=== PATIENT | female | born 1935 | race Caucasian/White ===

== ENCOUNTER 2016-12-28 14:34 | Emergency (ER) | payer OTHER ==
[2016-12-28 14:42] VITALS: BP 144/75; BMI 25.7
--- NOTE | 2016-12-28 15:10 | ED.ABDFE ---
HPI - Time seen Time seen: 15:05 - PCP Primary Care Physician: FREDDY - Complaint Chief Complaint:: PT. C/O ABDOMINAL PAIN. DAUGHTER STATES PT. HAS BEEN CONSTIPATED FOR 10 DAYS WITH A VERY SMALL, HARD BOWEL MOVEMENT ON MONDAY. PT. HAS CHANGED HER DIET AT HOME WELL TAKEN MAGNESIUM CITRATE, MIRALAX, & A SUPPOSITORY WITH NO RESULTS. - Source History Provided: Patient, Family Member - Mode of arrival Mode of Arrival: Ambulatory - Timing Onset of Chief Complaint: 12/18/16 PMH - PMH Past Medical History: No Past Surgical History: Yes Surgical History: Cholecystectomy - Family History History of Family Medical Conditions: No - Social History Does patient currently use any type of tobacco product: No Have you used tobacco products in the last 12 months: No Type of Tobacco Use: None Does any household member use tobacco: No Alcohol Use: None Do you use any recreational Drugs:: No Lives With: Alone Lives Where: Home - infectious screening In the last 2 months have you had wt loss of >10#?: NO Have you had fever, night sweats or hemotysis?: No Have you traveled outside the country in the last 6 months?: No Isolation: Standard ROS - Review of Systems Constitutional: No Symptoms Reported Eyes: No Symptoms Reported ENTM: No Symptoms Reported Respiratoy: No Symptoms Reported Cardiovascular: No Symptoms Reported Gastrointestinal/Abdominal: See HPI, Constipation Genitourinary: No Symptoms Reported Neurological: No Symptoms Reported Musculoskeletal: No Symptoms Reported Integumentary: No Symptoms Reported Hematologic/Lymphatic: No Symptoms Reported Endocrine: No Symptoms Reported Psychiatric: No Symptoms Reported All Other Systems: Reviewed and Negative PE - Vital Signs Vitals: Temperature 97.9 F Pulse Rate 76 Respiratory Rate 16 Blood Pressure 144/75 O2 Sat by Pulse Oximetry 96 - General Limitations: No Limitations General Appearance: Alert, In No Apparent Distress - Head Head Exam: Normal Inspection, Atraumatic - Eyes Eye exam: Normal Appearance, PERRL, EOMI - ENT ENT Exam: Normal Exam - Neck Neck Exam: Normal Inspection, Full ROM - Chest Chest Inspection: Normal Inspection - Respiratory Respiratory Exam: Normal Lung Sounds Bilat Respiratory Exam: Bilateral Clear to Auscultation - Cardiovascular Cardiovascular Exam: Regular Rate, Normal Rhythm - Abdominal Exam Abdominal Exam: Normal Inspection Abdominal Tenderness: negative: RUQ, RLQ, LUQ, LLQ, Epigastrium, Suprapubic, Diffuse, Mild, Moderate, Severe, Other - Rectal Rectal Exam: Deferred - Back Back Exam: Normal Inspection - Extremeties Extremities Exam: Normal Inspection, Full ROM - External Exam: Female: Deferred : Speculum Exam (Female): Deferred : Bimanual Exam (female): Deferred - Neurologic Neurological Exam: Alert, Oriented X3, CN II-XII Intact - Psychiatric Psychiatric Exam: Normal Affect ROR - XRAY XRAY Interpreted by: Radiologist (There is contrast material and stool present throughout the colon. No bowel obstruction is seen. There is no opaque stone although 1 could be obscured by the contrast material. There are surgical clips from cholecystectomy. Lung bases are clear. There is demineralization of the osseous structures. Multiple biconcave compression fractures are present involving the lower thoracic and upper lumbar regions. An acute osseous abnormality is not identified. Impression:No bowel obstruction seen. Contrast material and stool present throughout the colon) - Diagnosis Discharge Problem: Constipation Qualifiers: Constipation type: slow transit constipation Qualified Code(s): K59.01 - Slow transit constipation - Discharge Plan Condition: Stable - Follow ups/Referrals Follow ups/Referrals: AKIL HAYES [Primary Care Provider] - 3 days - Instructions
--- NOTE | 2016-12-28 16:13 | RAD ---
HISTORY: Constipation for 10 days. Study: KUB Comparison: No priors Findings: There is contrast material and stool present throughout the colon. No bowel obstruction is seen. The re is no opaque stone although 1 could be obscured by the contrast material. There are surgical clip s from cholecystectomy. Lung bases are clear. There is demineralization of the osseous structures. M ultiple biconcave compression fractures are present involving the lower thoracic and upper lumbar re gions. An acute osseous abnormality is not identified. IMPRESSION: No bowel obstruction seen. Contrast material and stool present throughout the colon. Reported By:
== END 2016-12-28 16:41 | disposition home or self-care (01) ==
LOC: ER 14:51
DX: K59.01 Slow transit constipation (principal)
CPT/HCPCS: 74000; 99282

== ENCOUNTER 2017-04-04 20:35 | Emergency (ER) | payer OTHER ==
[2017-04-04 20:45] VITALS: BP 117/73; BMI 23.0
--- NOTE | 2017-04-04 21:19 | DR.GENAD ---
HPI - PCP Primary Care Physician: nfd - Complaint/Symptoms Chief Complaint Doctors Comments: abdominal pain and vomiting since surgery 4 months ago. Also diarrhea today. Had endoscopy 2 weeks which was normal. Chief Complaint:: stomach pain - Nurses notes reviewed Nurses Notes Review: Yes - Source History Provided: Patient - Mode of Arrival Mode of Arrival: Ambulatory - Timing Onset of Chief Complaint: 04/03/17 Came on: Gradually - Duration Duration: Intermittent How lon Duration: Days - Location Location: stomach - Severity Severity: Mild - Associated Signs and Symptoms Associated Signs and Symptoms: diarrhea - Other History Other History: spinal fusion 4 months ago PMH - PMH Past Medical History: Yes Past Medical History Comment: osteoporosis Past Surgical History: Yes Surgical History: Cholecystectomy, Ortho Surgery Past Surgical History Comment: spinal surgery - Family History History of Family Medical Conditions: No - Social History Does patient currently use any type of tobacco product: No Have you used tobacco products in the last 12 months: No Type of Tobacco Use: None Does any household member use tobacco: No Alcohol Use: None Do you use any recreational Drugs:: No Lives With: Alone Lives Where: Home - infectious screening In the last 2 months have you had wt loss of >10#?: NO Have you had fever, night sweats or hemotysis?: No Have you traveled outside the country in the last 6 months?: No Isolation: Standard ROS - Review of Systems Constitutional: No Symptoms Reported Eyes: No Symptoms Reported ENTM: No Symptoms Reported Respiratoy: No Symptoms Reported Cardiovascular: No Symptoms Reported Gastrointestinal/Abdominal: Abdominal Pain, Diarrhea, Nausea, Vomiting Genitourinary: No Symptoms Reported Neurological: No Symptoms Reported Musculoskeletal: No Symptoms Reported Integumentary: No Symptoms Reported Hematologic/Lymphatic: No Symptoms Reported Endocrine: No Symptoms Reported Psychiatric: No Symptoms Reported PE - Vital Signs Vitals: Temperature 98.1 F Pulse Rate 77 Respiratory Rate 16 Blood Pressure 117/73 O2 Sat by Pulse Oximetry 97 - General Limitations: No Limitations General Appearance: Alert, In No Apparent Distress - Head Head Exam: Normal Inspection - Eyes Eye exam: Normal Appearance, EOMI. negative: Scleral Icterus, Conjunctival Injection - ENT ENT Exam: Normal Exam - Neck Neck Exam: Normal Inspection, Full ROM, Trachea Midline - Chest Chest Inspection: Normal Inspection - Respiratory Respiratory Exam: Normal Lung Sounds Bilat. negative: Accessory Muscle Use, Respiratory Distress Respiratory Exam: Bilateral Clear to Auscultation - Cardiovascular Cardiovascular Exam: Regular Rate - Abdominal Exam Abdominal Exam: Normal Inspection, Normal Bowel Sounds, Soft. negative: Distention, Tenderness, Guarding Abdominal Tenderness: Epigastrium - Extremities Extremities Exam: Normal Inspection, Full ROM, Tenderness - Back Back Exam: Normal Inspection - Neurologic Neurological Exam: Alert, Oriented X3, CN II-XII Intact - Psychiatric Psychiatric Exam: Depressed - Skin Skin Exam: Intact, Normal Color ROR - Labs Reviewed Result Diagrams: 04/04/17 21:38 04/04/17 21:38 Laboratory: WBC 10.2 X10^3/uL (3.6-10.0) H 04/04/17 21:38 RBC 4.54 X10^6/uL (3.5-5.4) 04/04/17 21:38 Hgb 14.4 g/dL (12.0-16.0) 04/04/17 21:38 Hct 42.1 % (36.0-47.0) 04/04/17 21:38 MCV 92.8 fL (80.0-100.0) 04/04/17 21:38 MCH 31.7 pg (27.0-34.0) 04/04/17 21:38 MCHC 34.2 g/dL (33.0-35.0) 04/04/17 21:38 RDW 14.2 % (11.6-16.5) 04/04/17 21:38 Plt Count 221 X10^3/uL (150.0-450.0) 04/04/17 21:38 MPV 8.2 fL (7.4-11.0) 04/04/17 21:38 Neut % 78.5 % (42.0-75.0) H 04/04/17 21:38 Lymph % 13.5 % (21.0-51.0) L 04/04/17 21:38 Levy % 7.4 % (0.0-13.0) 04/04/17 21:38 Eos % 0.3 % (0.9-2.9) L 04/04/17 21:38 Baso % 0.3 % (0.2-1.0) 04/04/17 21:38 Neut # 8.0 x10^3/uL (2.2-4.8) H 04/04/17 21:38 Lymph # 1.4 X10^3/uL (1.3-2.9) 04/04/17 21:38 Levy # 0.8 x10^3/uL (0.3-0.8) 04/04/17 21:38 Eos # 0.0 x10^3/uL (0.0-0.2) 04/04/17 21:38 Baso # 0.0 X10^3/uL (0.0-0.1) 04/04/17 21:38 Absolute Nucleated RBC 0.0 /100WBC 04/04/17 21:38 Sodium 139 mmol/L (136-145) 04/04/17 21:38 Corrected Sodium 139 mmol/L (136-145) 04/04/17 21:38 Potassium 3.8 mmol/L (3.5-5.1) 04/04/17 21:38 Chloride 102 mmol/L (98-107) 04/04/17 21:38 Carbon Dioxide 26.9 mmol/L (21-32) 04/04/17 21:38 BUN 12 mg/dL (7-18) 04/04/17 21:38 Creatinine 0.94 mg/dL (0.55-1.02) 04/04/17 21:38 Est GFR (MDRD) Af Amer > 60 (>60) 04/04/17 21:38 Est GFR (MDRD) Non-Af > 60 (>60) 04/04/17 21:38 Glucose 114 mg/dL (65-99) H 04/04/17 21:38 Calcium 9.0 mg/dL (8.5-10.1) 04/04/17 21:38 - XRAY XRAY Interpreted by: Radiologist XRAY Findings: AAS: no air fluid levels, no free air - Diagnosis Discharge Problem: Vomiting and diarrhea - Discharge Plan Condition: Stable Prescriptions: Ondansetron [Zofran Odt] 4 mg PO Q8H PRN #12 tab PRN Reason: Nausea/Vomiting - Follow ups/Referrals Follow ups/Referrals: NFD,None [Primary Care Provider] - 3 days - Instructions
[2017-04-04] MEDS ORDERED: ZOFRAN INJ 4 MG VIAL IVP ONE (21:27)
[2017-04-04] MEDS ORDERED: NS 500 ML IV 500 ML IV ONE ×2 (21:27→21:40)
[2017-04-04] MEDS ORDERED: ZOFRAN INJ 4 MG VIAL ONE (21:28)
[2017-04-04] MEDS ORDERED: NS 1000 ML 0 ML ONE (21:28)
[2017-04-04 21:47] LABS: BASOPHILS % (AUTO) 0.3 % (0.2-1.0); EOSINOPHILS % (AUTO) 0.3 % (0.9-2.9); HEMATOCRIT 42.1 % (36.0-47.0); HEMOGLOBIN 14.4 g/dL (12.0-16.0); LYMPHOCYTES # (AUTO) 1.4 X10^3/uL (1.3-2.9); LYMPHOCYTES % (AUTO) 13.5 % (21.0-51.0); MEAN CORPUSCULAR HEMOGLOBIN 31.7 pg (27.0-34.0); MEAN CORPUSCULAR HGB CONC 34.2 g/dL (33.0-35.0); MEAN CORPUSCULAR VOLUME 92.8 fL (80.0-100.0); MEAN PLATELET VOLUME 8.2 fL (7.4-11.0); MONOCYTES # (AUTO) 0.8 x10^3/uL (0.3-0.8); MONOCYTES % (AUTO) 7.4 % (0.0-13.0); NEUTROPHILS % (AUTO) 78.5 % (42.0-75.0); PLATELET COUNT 221 X10^3/uL (150.0-450.0); RED BLOOD COUNT 4.54 X10^6/uL (3.5-5.4); RED CELL DISTRIBUTION WIDTH 14.2 % (11.6-16.5); WHITE BLOOD COUNT 10.2 X10^3/uL (3.6-10.0)
--- NOTE | 2017-04-04 21:56 | RAD ---
HISTORY: Chest and abdominal pain. Acute abdominal series. Findings: The trachea is midline. The cardiac silhouette is mildly enlarged. The lungs are clear without foc al infiltrate or pleural effusion. No gross free peritoneal air is seen under the diaphragm. Flat plate and upright evaluation of the abdomen demonstrates a nonspecific and nonobstructive bowel gas pattern. No free peritoneal air is seen. No pathological soft tissue abdominal mass effect or f ocal calcification can be observed. There is diffuse osteopenia and multilevel thoracolumbar compre ssion deformities, some of which are been treated via kyphoplasty. IMPRESSION: 1. No acute cardiopulmonary disease. 2. No evidence for acute abdominal pathology. Reported By:
[2017-04-04 22:09] LABS: BLOOD UREA NITROGEN 12 mg/dL (7-18); CARBON DIOXIDE 26.9 mmol/L (21-32); CHLORIDE 102 mmol/L (98-107); COR NA(FOR HYPERGLY) 139 mmol/L (136-145); CREATININE 0.94 mg/dL (0.55-1.02); GLUCOSE 114 mg/dL (65-99); SODIUM 139 mmol/L (136-145); eGFR BLACK RACES > 60 (>60); eGFR NON BLACK RACES > 60 (>60)
== END 2017-04-04 22:34 | disposition home or self-care (01) ==
LOC: ER 20:49
DX: R11.10 Vomiting, unspecified (principal); R19.7 Diarrhea, unspecified
CPT/HCPCS: 36415; 74022; 80048; 85025; 96365; 96374; 99282; 99283; A4222; J2405